=== PATIENT | female | born 1950 | race Caucasian/White ===

== ENCOUNTER → 2016-11-30 | Outpatient (REF) | payer BC ==
[2016-11-30 18:09] LABS: INR 0.94
[2016-11-30 18:27] LABS: BLOOD UREA NITROGEN 17 MG/DL (7-18); CREATININE FOR GFR 0.95 MG/DL (0.55-1.02); GLOMERULAR FILTRATION RATE > 60.0 (>45)
== END ==
LOC: M LABDRAW1 16:50
PROVIDERS: ATTEND Physical Medicine & Rehabilitation
DX: M48.06 Spinal stenosis, lumbar region (principal)

== ENCOUNTER → 2021-11-04 | Outpatient (CLI) | payer MEDICARE | LOC: M LABSMTC 09:16 | PROVIDERS: ATTEND Orthopaedic Surgery | DX: Z01.812 Encounter for preprocedural laboratory examination (principal); Z20.822 Contact with and (suspected) exposure to COVID-19 ==